=== PATIENT | male | born 1945 | race Caucasian/White ===

== ENCOUNTER → 2018-07-05 | Outpatient (CLI) | payer MEDICARE, MEDICAID ==
[~2018-07-05] MED LIST: AMLO5TAB4 PO; ATOR20TA37 PO; AZEL6DRO2 EACHEYE; CLON0.1T22 PO; CLON0.2T PO; FERR325T18 PO; HYDR25TA6 PO; LISI-170 PO; LOSA100T14 PO; METF500T17 PO; METO50TA82 PO; POTA10TA PO; insulin
== END | disposition home or self-care (01) ==
LOC: CVU 15:50
PROVIDERS: ATTEND Internal Medicine Cardiovascular Disease
DX: I35.8 Other nonrheumatic aortic valve disorders (principal); I11.9 Hypertensive heart disease without heart failure; E78.5 Hyperlipidemia, unspecified; Z86.73 Personal history of transient ischemic attack (TIA), and cerebral infarction without residual deficits
CPT/HCPCS: 93306

== ENCOUNTER 2020-04-26 12:22 | Inpatient (IN) | payer MEDICARE, MEDICAID ==
[~2020-04-26] VITALS: Ht 172.7 cm; Wt 77.1 kg
--- NOTE | 2020-04-26 12:59 | NUR ---
PT PRESENTS TO ED WITH SOB X8 DAYS. SOME COUGHING. DENIES ANY OTHER SYMPTOMS. NO WOB NOTED, NC IN PLACE. PT RECLINED TO DEGREES IN BED AND REPORTS COMFORT IN THIS POSITION.
--- NOTE | 2020-04-26 13:11 | NUR ---
PONCE MUÑIZ AT BEDSIDE TO PLACE PIV.
[2020-04-26] MEDS ORDERED: SODIUM CHLORIDE FLUSH 10ML SYR IVF ONE (14:00)
--- NOTE | 2020-04-26 14:01 | NUR ---
PT RESTING COMFORTABLY. VSS. FAMILY AT BEDSIDE.
[2020-04-26 14:03] LABS: BASOPHILS % (AUTO) 0 % (0-1); EOSINOPHILS % (AUTO) 0 % (1-7); LYMPHOCYTES % (AUTO) 20 % (22-44); MEAN CORPUSCULAR HEMOGLOBIN 31.4 pg (27.5-34.5); MEAN CORPUSCULAR HGB CONC 34.4 g/dL (33.2-36.2); MEAN PLATELET VOLUME 9.5 fL (7.4-10.4); MONOCYTES % (AUTO) 11 % (2-9); NEUTROPHILS % (AUTO) 68 % (42-75); PLATELET COUNT 179 x10^3/uL (130-400); RED BLOOD COUNT 5.21 x10^6/uL (4.38-5.82); RED CELL DISTRIBUTION WIDTH 14.9 % (9.4-14.8)
[2020-04-26 14:08] LABS: MD NO
[2020-04-26 14:13] LABS: ALBUMIN 3.2 g/dL (3.4-5.0); ANION GAP 8 mmol/L (5-15); CALCIUM 8.6 mg/dL (8.5-10.1); CHLORIDE 103 mmol/L (98-107)
[2020-04-26 14:17] LABS: ALANINE AMINOTRANSFERASE 34 U/L (12-78); ALKALINE PHOSPHATASE 56 U/L (45-117); BILIRUBIN,TOTAL 0.8 mg/dL (0.2-1.0); TOTAL PROTEIN 8.5 g/dL (6.4-8.2)
[2020-04-26] MEDS ORDERED: HYDROcodone/APAP 5/325 TABLET PO PRN (15:00)
[2020-04-26] MEDS ORDERED: CEFTRIAXONE PMX 1GM/50ML 50 ML IV SCH (15:00)
[2020-04-26] MEDS ORDERED: ACETAMINOPHEN 325 MG TABLET PO PRN (15:00)
[2020-04-26] MEDS ORDERED: POTASSIUM CHLORIDE 20 MEQ TAB.ER.PRT PO ONE (15:00)
[2020-04-26] MEDS ORDERED: AZITHROMYCIN 500 MG in SODIUM CHLORIDE 0.9% 250 ML IV ONE (15:00)
[2020-04-26] MEDS ORDERED: CEFTRIAXONE PMX 1GM/50ML 50 ML IVPB ONE (15:00)
[2020-04-26] MEDS ORDERED: ONDANSETRON 2MG/ML, 2ML IVPush PRN (15:00)
[2020-04-26] MEDS ORDERED: SODIUM CHLORIDE 0.9% 500 ML IV SCH ×2 (15:30→21:23)
[2020-04-26] MEDS ORDERED: ENOXAPARIN 40 MG/0.4 ML ONE (15:50)
[2020-04-26] MEDS ORDERED: CEFTRIAXONE PMX 2GM/50ML 50 ML ONE (15:50)
[2020-04-26] MEDS ORDERED: POTASSIUM CHLORIDE 20 MEQ TAB.ER.PRT ONE (15:50)
[2020-04-26] MEDS: INSULIN LISPRO 100 UNITS/ML, PEN SQ-INSULIN SCH ×2 (16:00→23:22)
[2020-04-26] MEDS: ENOXAPARIN 40 MG/0.4 ML SQ SCH (16:03)
[2020-04-26] MEDS: CEFTRIAXONE PMX 2GM/50ML 50 ML IVPB SCH (16:04)
--- NOTE | 2020-04-26 16:12 | NUR ---
US AT BEDSIDE.
[2020-04-26] MEDS ORDERED: INSULIN LISPRO 100 UNITS/ML, PEN ONE (16:18)
--- NOTE | 2020-04-26 17:25 | NUR ---
FOOD TRAY PROVIDED. BG 144. UPDATED PT ON SO'S CONDITION IN ICU.
[2020-04-26 20:25] LABS: TROPONIN I < 0.015 ng/mL (0.000-0.045)
[2020-04-26 21:29] VITALS: BP 127/73
[2020-04-26] MEDS: ATORVASTATIN 40 MG TABLET PO SCH (22:30)
[2020-04-26] MEDS: METOPROLOL TARTRATE 25 MG TAB PO SCH (22:30)
[2020-04-26] MEDS: FAMOTIDINE 20 MG TABLET PO SCH (22:30)
[2020-04-27 02:03] VITALS: BP 126/77
[2020-04-27 02:27] LABS: BASOPHILS % (AUTO) 0 % (0-1); EOSINOPHILS % (AUTO) 0 % (1-7); LYMPHOCYTES % (AUTO) 28 % (22-44); MEAN CORPUSCULAR HEMOGLOBIN 31.3 pg (27.5-34.5); MEAN CORPUSCULAR HGB CONC 34.1 g/dL (33.2-36.2); MEAN PLATELET VOLUME 8.3 fL (7.4-10.4); MONOCYTES % (AUTO) 12 % (2-9); NEUTROPHILS % (AUTO) 60 % (42-75); PLATELET COUNT 170 x10^3/uL (130-400); RED BLOOD COUNT 4.87 x10^6/uL (4.38-5.82); RED CELL DISTRIBUTION WIDTH 15.1 % (9.4-14.8)
[2020-04-27 02:29] LABS: MD NO
[2020-04-27 02:34] LABS: ANION GAP 4 mmol/L (5-15); CHLORIDE 105 mmol/L (98-107); CREATININE 1.23 mg/dL (0.7-1.3)
[2020-04-27 02:47] LABS: TROPONIN I < 0.015 ng/mL (0.000-0.045)
[2020-04-27] MEDS ORDERED: POTASSIUM CHLORIDE 20 MEQ TAB.ER.PRT PO ONE (05:30)
[2020-04-27] MEDS: INSULIN LISPRO 100 UNITS/ML, PEN SQ-INSULIN SCH ×4 (07:00→22:17)
[2020-04-27] MEDS: AZITHROMYCIN 500 MG TABLET PO SCH (08:27)
[2020-04-27] MEDS: FAMOTIDINE 20 MG TABLET PO SCH ×2 (08:28→22:07)
[2020-04-27] MEDS: METOPROLOL TARTRATE 25 MG TAB PO SCH ×2 (08:28→22:07)
[2020-04-27 08:45] LABS: TROPONIN I < 0.015 ng/mL (0.000-0.045)
[2020-04-27 10:24] VITALS: BP 127/76
[2020-04-27 12:18] VITALS: BP 131/77
[2020-04-27] MEDS: ENOXAPARIN 40 MG/0.4 ML SQ SCH (15:00)
[2020-04-27] MEDS: CEFTRIAXONE PMX 2GM/50ML 50 ML IVPB SCH (15:46)
[2020-04-27] MEDS: ALBUTEROL HFA 90 MCG/SPRAY INH SCH ×2 (16:30→21:00)
[2020-04-27] MEDS ORDERED: TEMAZEPAM 15 MG CAPSULE PO PRN (16:30)
[2020-04-27] MEDS: DEXAMETHASONE 4 MG TABLET PO SCH (16:59)
[2020-04-27] MEDS: ALBUTEROL HFA 90 MCG/SPRAY INH PRN (18:39)
[2020-04-27 19:32] VITALS: BP 131/76
[2020-04-27 22:06] VITALS: BP 128/80
[2020-04-27] MEDS: ATORVASTATIN 40 MG TABLET PO SCH (22:07)
[2020-04-27] MEDS: INSULIN GLARGINE 100 UNITS/ML, PEN SQ-INSULIN SCH (22:16)
[2020-04-28 01:31] VITALS: BP 145/78
[2020-04-28 05:09] LABS: BASOPHILS % (AUTO) 0 % (0-1); EOSINOPHILS % (AUTO) 0 % (1-7); LYMPHOCYTES % (AUTO) 16 % (22-44); MEAN CORPUSCULAR HEMOGLOBIN 31.1 pg (27.5-34.5); MEAN CORPUSCULAR HGB CONC 33.8 g/dL (33.2-36.2); MEAN PLATELET VOLUME 8.5 fL (7.4-10.4); MONOCYTES % (AUTO) 6 % (2-9); NEUTROPHILS % (AUTO) 78 % (42-75); PLATELET COUNT 189 x10^3/uL (130-400); RED BLOOD COUNT 5.08 x10^6/uL (4.38-5.82); RED CELL DISTRIBUTION WIDTH 15.2 % (9.4-14.8)
[2020-04-28 05:10] LABS: MD NO
[2020-04-28 05:23] LABS: CHLORIDE 104 mmol/L (98-107)
[2020-04-28 05:30] LABS: ANION GAP 12 mmol/L (5-15); CALCIUM 8.8 mg/dL (8.5-10.1); CREATININE 1.28 mg/dL (0.7-1.3)
[2020-04-28] MEDS: ALBUTEROL HFA 90 MCG/SPRAY INH SCH ×4 (06:00→19:53)
[2020-04-28 07:25] VITALS: BP 130/80
[2020-04-28] MEDS: ASCORBIC ACID 500 MG TABLET PO SCH (07:55)
[2020-04-28] MEDS: ZINC SULFATE 220 MG CAPSULE PO SCH (07:55)
[2020-04-28] MEDS: METOPROLOL TARTRATE 25 MG TAB PO SCH ×2 (07:55→19:54)
[2020-04-28] MEDS: FAMOTIDINE 20 MG TABLET PO SCH ×2 (07:55→19:53)
[2020-04-28] MEDS: AZITHROMYCIN 500 MG TABLET PO SCH (07:55)
[2020-04-28] MEDS: CHOLECALCIFEROL 1,000 UNIT TABLET PO SCH (07:55)
[2020-04-28] MEDS: INSULIN LISPRO 100 UNITS/ML, PEN SQ-INSULIN SCH ×4 (07:56→21:14)
[2020-04-28] MEDS: DEXAMETHASONE 4 MG TABLET PO SCH (07:56)
[2020-04-28] MEDS ORDERED: DEXAMETHASONE 4 MG/ML, 1ML IVPush SCH (09:00)
[2020-04-28] MEDS ORDERED: DEXAMETHASONE 4 MG TABLET PO SCH (09:00)
[2020-04-28] MEDS ORDERED: ARTIFICIAL TEARS 15 DROP/ML BOTTLE EACHEYE PRN (09:30)
[2020-04-28] MEDS ORDERED: GUAIFENESIN/DM 200-20MG, 10ML UDC PO PRN (09:30)
[2020-04-28] MEDS ORDERED: REMDESIVIR 200 MG in SODIUM CHLORIDE 0.9% 250 ML IVPB ONE (10:00)
[2020-04-28] MEDS: DEXAMETHASONE 4 MG/ML, 1ML IVPush SCH (10:19)
[2020-04-28 12:05] VITALS: BP 126/79
[2020-04-28] MEDS: CEFTRIAXONE PMX 2GM/50ML 50 ML IVPB SCH (14:59)
[2020-04-28] MEDS: ENOXAPARIN 40 MG/0.4 ML SQ SCH (14:59)
[2020-04-28] MEDS: cloniDINE 0.1MG PATCH TD SCH (17:56)
[2020-04-28 18:37] VITALS: BP 131/80
[2020-04-28 19:44] VITALS: BP 122/76
[2020-04-28] MEDS: ATORVASTATIN 40 MG TABLET PO SCH (19:54)
[2020-04-28] MEDS: INSULIN GLARGINE 100 UNITS/ML, PEN SQ-INSULIN SCH (21:13)
[2020-04-29 00:30] VITALS: BP 143/81
[2020-04-29 05:18] LABS: BASOPHILS % (AUTO) 0 % (0-1); EOSINOPHILS % (AUTO) 0 % (1-7); LYMPHOCYTES % (AUTO) 13 % (22-44); MEAN CORPUSCULAR HEMOGLOBIN 31.6 pg (27.5-34.5); MEAN CORPUSCULAR HGB CONC 34.4 g/dL (33.2-36.2); MEAN PLATELET VOLUME 8.6 fL (7.4-10.4); MONOCYTES % (AUTO) 9 % (2-9); NEUTROPHILS % (AUTO) 78 % (42-75); PLATELET COUNT 240 x10^3/uL (130-400); RED BLOOD COUNT 5.27 x10^6/uL (4.38-5.82); RED CELL DISTRIBUTION WIDTH 15.2 % (9.4-14.8)
[2020-04-29 05:19] LABS: MD NO
[2020-04-29 05:29] LABS: ALBUMIN 2.7 g/dL (3.4-5.0); ANION GAP 11 mmol/L (5-15); CALCIUM 8.9 mg/dL (8.5-10.1); CHLORIDE 105 mmol/L (98-107)
[2020-04-29 05:38] LABS: ALANINE AMINOTRANSFERASE 45 U/L (12-78); ALKALINE PHOSPHATASE 51 U/L (45-117); BILIRUBIN,TOTAL 0.4 mg/dL (0.2-1.0); CREATININE 1.24 mg/dL (0.7-1.3); TOTAL PROTEIN 7.8 g/dL (6.4-8.2)
[2020-04-29] MEDS: ALBUTEROL HFA 90 MCG/SPRAY INH SCH ×4 (06:13→20:04)
[2020-04-29 07:34] VITALS: BP 119/73
[2020-04-29] MEDS: ZINC SULFATE 220 MG CAPSULE PO SCH (07:43)
[2020-04-29] MEDS: DEXAMETHASONE 4 MG/ML, 1ML IVPush SCH (07:43)
[2020-04-29] MEDS: CHOLECALCIFEROL 1,000 UNIT TABLET PO SCH (07:43)
[2020-04-29] MEDS: AZITHROMYCIN 500 MG TABLET PO SCH (07:44)
[2020-04-29] MEDS: ASCORBIC ACID 500 MG TABLET PO SCH (07:44)
[2020-04-29] MEDS: FAMOTIDINE 20 MG TABLET PO SCH ×2 (07:44→20:04)
[2020-04-29] MEDS: METOPROLOL TARTRATE 25 MG TAB PO SCH ×2 (07:44→20:04)
[2020-04-29] MEDS: POTASSIUM CHLORIDE 20 MEQ TAB.ER.PRT PO SCH ×2 (07:44→15:54)
[2020-04-29] MEDS: INSULIN LISPRO 100 UNITS/ML, PEN SQ-INSULIN SCH ×4 (07:45→22:21)
[2020-04-29] MEDS: REMDESIVIR 100 MG in SODIUM CHLORIDE 0.9% 250 ML IVPB SCH (09:47)
[2020-04-29 12:43] VITALS: BP 121/77
[2020-04-29] MEDS: ENOXAPARIN 40 MG/0.4 ML SQ SCH (15:54)
[2020-04-29] MEDS: MECLIZINE CHEWABLE 25 MG TAB PO SCH ×2 (15:54→20:03)
[2020-04-29] MEDS: CEFTRIAXONE PMX 2GM/50ML 50 ML IVPB SCH (16:03)
[2020-04-29 19:18] VITALS: BP 153/82
[2020-04-29] MEDS: ATORVASTATIN 40 MG TABLET PO SCH (20:04)
[2020-04-29] MEDS: INSULIN GLARGINE 100 UNITS/ML, PEN SQ-INSULIN SCH (22:22)
[2020-04-30 01:48] VITALS: BP 131/84
[2020-04-30] MEDS: ALBUTEROL HFA 90 MCG/SPRAY INH SCH ×4 (06:00→20:22)
[2020-04-30 07:17] VITALS: BP 129/75
[2020-04-30] MEDS: MECLIZINE CHEWABLE 25 MG TAB PO SCH ×3 (07:21→20:21)
[2020-04-30] MEDS: POTASSIUM CHLORIDE 20 MEQ TAB.ER.PRT PO SCH ×2 (07:21→16:30)
[2020-04-30] MEDS: ZINC SULFATE 220 MG CAPSULE PO SCH (07:21)
[2020-04-30] MEDS: ASCORBIC ACID 500 MG TABLET PO SCH (07:21)
[2020-04-30] MEDS: METOPROLOL TARTRATE 25 MG TAB PO SCH ×2 (07:21→20:22)
[2020-04-30] MEDS: INSULIN LISPRO 100 UNITS/ML, PEN SQ-INSULIN SCH ×4 (07:21→20:21)
[2020-04-30] MEDS: AZITHROMYCIN 500 MG TABLET PO SCH (07:21)
[2020-04-30] MEDS: CHOLECALCIFEROL 1,000 UNIT TABLET PO SCH (07:21)
[2020-04-30] MEDS: FAMOTIDINE 20 MG TABLET PO SCH ×2 (07:22→20:21)
[2020-04-30] MEDS: DEXAMETHASONE 4 MG/ML, 1ML IVPush SCH (07:22)
[2020-04-30 08:42] LABS: BASOPHILS % (AUTO) 0 % (0-1); EOSINOPHILS % (AUTO) 0 % (1-7); LYMPHOCYTES % (AUTO) 10 % (22-44); MEAN CORPUSCULAR HEMOGLOBIN 31.4 pg (27.5-34.5); MEAN CORPUSCULAR HGB CONC 33.8 g/dL (33.2-36.2); MEAN PLATELET VOLUME 8.5 fL (7.4-10.4); MONOCYTES % (AUTO) 9 % (2-9); NEUTROPHILS % (AUTO) 82 % (42-75); PLATELET COUNT 257 x10^3/uL (130-400); RED BLOOD COUNT 5.19 x10^6/uL (4.38-5.82); RED CELL DISTRIBUTION WIDTH 15.3 % (9.4-14.8)
[2020-04-30 08:50] LABS: MD NO
[2020-04-30 08:52] LABS: ALBUMIN 2.6 g/dL (3.4-5.0); ANION GAP 11 mmol/L (5-15); CALCIUM 8.4 mg/dL (8.5-10.1); CHLORIDE 108 mmol/L (98-107)
[2020-04-30 08:59] LABS: ALANINE AMINOTRANSFERASE 42 U/L (12-78); ALKALINE PHOSPHATASE 53 U/L (45-117); BILIRUBIN,TOTAL 0.5 mg/dL (0.2-1.0); CREATININE 1.15 mg/dL (0.7-1.3); TOTAL PROTEIN 7.9 g/dL (6.4-8.2)
[2020-04-30] MEDS: REMDESIVIR 100 MG in SODIUM CHLORIDE 0.9% 250 ML IVPB SCH (10:56)
[2020-04-30 12:02] VITALS: BP 134/82
[2020-04-30] MEDS: ENOXAPARIN 40 MG/0.4 ML SQ SCH (16:29)
[2020-04-30] MEDS: CEFTRIAXONE PMX 2GM/50ML 50 ML IVPB SCH (16:29)
[2020-04-30] MEDS: ATORVASTATIN 40 MG TABLET PO SCH (20:21)
[2020-04-30] MEDS: INSULIN GLARGINE 100 UNITS/ML, PEN SQ-INSULIN SCH (20:23)
[2020-04-30 20:26] VITALS: BP 136/78
[2020-05-01 00:16] VITALS: BP 138/82
[2020-05-01 05:15] LABS: ALBUMIN 2.8 g/dL (3.4-5.0); ANION GAP 6 mmol/L (5-15); CALCIUM 9.2 mg/dL (8.5-10.1); CHLORIDE 114 mmol/L (98-107)
[2020-05-01] MEDS: ALBUTEROL HFA 90 MCG/SPRAY INH SCH ×4 (05:15→19:47)
[2020-05-01 05:19] LABS: ALANINE AMINOTRANSFERASE 45 U/L (12-78); ALKALINE PHOSPHATASE 52 U/L (45-117); BILIRUBIN,TOTAL 0.5 mg/dL (0.2-1.0); CREATININE 1.14 mg/dL (0.7-1.3); TOTAL PROTEIN 7.5 g/dL (6.4-8.2)
[2020-05-01] MEDS: INSULIN LISPRO 100 UNITS/ML, PEN SQ-INSULIN SCH ×4 (07:00→19:48)
[2020-05-01 07:09] VITALS: BP 143/85
[2020-05-01] MEDS: MECLIZINE CHEWABLE 25 MG TAB PO SCH ×3 (07:16→19:46)
[2020-05-01] MEDS: ASCORBIC ACID 500 MG TABLET PO SCH (07:16)
[2020-05-01] MEDS: FAMOTIDINE 20 MG TABLET PO SCH ×2 (07:17→19:47)
[2020-05-01] MEDS: POTASSIUM CHLORIDE 20 MEQ TAB.ER.PRT PO SCH ×2 (07:17→16:18)
[2020-05-01] MEDS: DEXAMETHASONE 4 MG/ML, 1ML IVPush SCH (07:17)
[2020-05-01] MEDS: AZITHROMYCIN 500 MG TABLET PO SCH (07:17)
[2020-05-01] MEDS: METOPROLOL TARTRATE 25 MG TAB PO SCH ×2 (07:17→19:46)
[2020-05-01] MEDS: ZINC SULFATE 220 MG CAPSULE PO SCH (07:17)
[2020-05-01] MEDS: CHOLECALCIFEROL 1,000 UNIT TABLET PO SCH (07:17)
[2020-05-01] MEDS: REMDESIVIR 100 MG in SODIUM CHLORIDE 0.9% 250 ML IVPB SCH (10:25)
[2020-05-01 14:15] VITALS: BP 143/87
[2020-05-01] MEDS: ENOXAPARIN 40 MG/0.4 ML SQ SCH (16:18)
[2020-05-01] MEDS: CEFTRIAXONE PMX 2GM/50ML 50 ML IVPB SCH (16:18)
[2020-05-01] MEDS: ALBUTEROL HFA 90 MCG/SPRAY INH PRN (19:47)
[2020-05-01] MEDS: ATORVASTATIN 40 MG TABLET PO SCH (19:47)
[2020-05-01] MEDS: INSULIN GLARGINE 100 UNITS/ML, PEN SQ-INSULIN SCH (19:48)
[2020-05-01 19:49] VITALS: BP 138/82
[2020-05-02 00:16] VITALS: BP 146/88
[2020-05-02] MEDS: ALBUTEROL HFA 90 MCG/SPRAY INH SCH ×4 (04:57→21:38)
[2020-05-02 06:29] LABS: BASOPHILS % (AUTO) 0 % (0-1); EOSINOPHILS % (AUTO) 0 % (1-7); LYMPHOCYTES % (AUTO) 14 % (22-44); MEAN CORPUSCULAR HEMOGLOBIN 31.1 pg (27.5-34.5); MEAN CORPUSCULAR HGB CONC 33.8 g/dL (33.2-36.2); MEAN PLATELET VOLUME 9.2 fL (7.4-10.4); MONOCYTES % (AUTO) 10 % (2-9); NEUTROPHILS % (AUTO) 75 % (42-75); PLATELET COUNT 265 x10^3/uL (130-400); RED BLOOD COUNT 5.36 x10^6/uL (4.38-5.82); RED CELL DISTRIBUTION WIDTH 15.3 % (9.4-14.8)
[2020-05-02 06:31] LABS: MD NO
[2020-05-02 06:42] LABS: ALBUMIN 2.9 g/dL (3.4-5.0); ANION GAP 3 mmol/L (5-15); CALCIUM 9.1 mg/dL (8.5-10.1); CHLORIDE 112 mmol/L (98-107)
[2020-05-02 06:50] LABS: ALANINE AMINOTRANSFERASE 64 U/L (12-78); ALKALINE PHOSPHATASE 61 U/L (45-117); BILIRUBIN,TOTAL 0.7 mg/dL (0.2-1.0); CREATININE 1.05 mg/dL (0.7-1.3); TOTAL PROTEIN 7.7 g/dL (6.4-8.2)
[2020-05-02] MEDS: INSULIN LISPRO 100 UNITS/ML, PEN SQ-INSULIN SCH ×4 (07:00→21:36)
[2020-05-02 07:13] VITALS: BP 155/98
[2020-05-02] MEDS: MECLIZINE CHEWABLE 25 MG TAB PO SCH ×3 (07:51→21:36)
[2020-05-02] MEDS: ASCORBIC ACID 500 MG TABLET PO SCH (07:51)
[2020-05-02] MEDS: DEXAMETHASONE 4 MG/ML, 1ML IVPush SCH (07:51)
[2020-05-02] MEDS: AZITHROMYCIN 500 MG TABLET PO SCH (07:51)
[2020-05-02] MEDS: FAMOTIDINE 20 MG TABLET PO SCH ×2 (07:51→21:37)
[2020-05-02] MEDS: ZINC SULFATE 220 MG CAPSULE PO SCH (07:51)
[2020-05-02] MEDS: METOPROLOL TARTRATE 25 MG TAB PO SCH ×2 (07:51→21:37)
[2020-05-02] MEDS: CHOLECALCIFEROL 1,000 UNIT TABLET PO SCH (07:51)
[2020-05-02] MEDS ORDERED: FUROSEMIDE 40 MG/4 ML IV ONE (09:00)
[2020-05-02] MEDS: REMDESIVIR 100 MG in SODIUM CHLORIDE 0.9% 250 ML IVPB SCH (09:31)
[2020-05-02 12:43] VITALS: BP 136/87
[2020-05-02] MEDS: CEFTRIAXONE PMX 2GM/50ML 50 ML IVPB SCH (14:55)
[2020-05-02] MEDS: ENOXAPARIN 40 MG/0.4 ML SQ SCH (14:55)
[2020-05-02 19:43] VITALS: BP 134/87
[2020-05-02] MEDS: INSULIN GLARGINE 100 UNITS/ML, PEN SQ-INSULIN SCH (21:36)
[2020-05-02] MEDS: ATORVASTATIN 40 MG TABLET PO SCH (21:37)
[2020-05-03 00:31] VITALS: BP 135/84
[2020-05-03 05:13] LABS: BASOPHILS % (AUTO) 0 % (0-1); EOSINOPHILS % (AUTO) 0 % (1-7); LYMPHOCYTES % (AUTO) 18 % (22-44); MEAN CORPUSCULAR HEMOGLOBIN 31.3 pg (27.5-34.5); MEAN CORPUSCULAR HGB CONC 33.9 g/dL (33.2-36.2); MEAN PLATELET VOLUME 8.9 fL (7.4-10.4); MONOCYTES % (AUTO) 12 % (2-9); NEUTROPHILS % (AUTO) 71 % (42-75); PLATELET COUNT 256 x10^3/uL (130-400); RED BLOOD COUNT 5.42 x10^6/uL (4.38-5.82); RED CELL DISTRIBUTION WIDTH 15.2 % (9.4-14.8)
[2020-05-03] MEDS: ALBUTEROL HFA 90 MCG/SPRAY INH SCH ×4 (05:22→21:18)
[2020-05-03 05:23] LABS: ANION GAP 6 mmol/L (5-15); CALCIUM 8.7 mg/dL (8.5-10.1); CHLORIDE 107 mmol/L (98-107)
[2020-05-03 05:24] LABS: CREATININE 1.02 mg/dL (0.7-1.3)
[2020-05-03 05:47] LABS: MD SCAN
[2020-05-03] MEDS: INSULIN LISPRO 100 UNITS/ML, PEN SQ-INSULIN SCH ×4 (07:00→21:17)
[2020-05-03] MEDS ORDERED: FUROSEMIDE 40 MG TABLET PO ONE (07:00)
[2020-05-03 07:37] VITALS: BP 143/93
[2020-05-03] MEDS: DEXAMETHASONE 4 MG/ML, 1ML IVPush SCH (07:47)
[2020-05-03] MEDS: ASCORBIC ACID 500 MG TABLET PO SCH (07:48)
[2020-05-03] MEDS: POTASSIUM CHLORIDE 20 MEQ TAB.ER.PRT PO SCH ×2 (07:48→15:55)
[2020-05-03] MEDS: CHOLECALCIFEROL 1,000 UNIT TABLET PO SCH (07:48)
[2020-05-03] MEDS: MECLIZINE CHEWABLE 25 MG TAB PO SCH ×3 (07:48→21:17)
[2020-05-03] MEDS: metFORMIN 500 MG TABLET PO SCH ×2 (07:48→15:55)
[2020-05-03] MEDS: AZITHROMYCIN 500 MG TABLET PO SCH (07:48)
[2020-05-03] MEDS: METOPROLOL TARTRATE 25 MG TAB PO SCH ×2 (07:48→21:18)
[2020-05-03] MEDS: FAMOTIDINE 20 MG TABLET PO SCH ×2 (07:49→21:18)
[2020-05-03] MEDS: ZINC SULFATE 220 MG CAPSULE PO SCH (07:49)
[2020-05-03 09:37] VITALS: BP 122/77
[2020-05-03 13:56] VITALS: BP 122/78
[2020-05-03] MEDS: CEFTRIAXONE PMX 2GM/50ML 50 ML IVPB SCH (15:55)
[2020-05-03] MEDS: ENOXAPARIN 40 MG/0.4 ML SQ SCH (15:55)
[2020-05-03 19:39] VITALS: BP 146/89
[2020-05-03] MEDS: INSULIN GLARGINE 100 UNITS/ML, PEN SQ-INSULIN SCH (21:17)
[2020-05-03] MEDS: ATORVASTATIN 40 MG TABLET PO SCH (21:18)
[2020-05-04 01:40] VITALS: BP 138/87
[2020-05-04] MEDS: ALBUTEROL HFA 90 MCG/SPRAY INH SCH ×4 (06:07→22:51)
[2020-05-04 06:21] LABS: ANION GAP 7 mmol/L (5-15); CALCIUM 8.9 mg/dL (8.5-10.1); CHLORIDE 106 mmol/L (98-107); CREATININE 1.19 mg/dL (0.7-1.3)
[2020-05-04] MEDS: INSULIN LISPRO 100 UNITS/ML, PEN SQ-INSULIN SCH ×4 (07:00→22:51)
[2020-05-04 07:03] VITALS: BP 138/87
[2020-05-04] MEDS: CHOLECALCIFEROL 1,000 UNIT TABLET PO SCH (07:32)
[2020-05-04] MEDS: MECLIZINE CHEWABLE 25 MG TAB PO SCH ×3 (07:32→22:50)
[2020-05-04] MEDS: metFORMIN 500 MG TABLET PO SCH ×2 (07:32→16:21)
[2020-05-04] MEDS: FAMOTIDINE 20 MG TABLET PO SCH ×2 (07:33→22:50)
[2020-05-04] MEDS: METOPROLOL TARTRATE 25 MG TAB PO SCH ×2 (07:33→22:50)
[2020-05-04] MEDS: ASCORBIC ACID 500 MG TABLET PO SCH (07:33)
[2020-05-04] MEDS: AZITHROMYCIN 500 MG TABLET PO SCH (07:33)
[2020-05-04] MEDS: DEXAMETHASONE 4 MG/ML, 1ML IVPush SCH (07:33)
[2020-05-04] MEDS: ZINC SULFATE 220 MG CAPSULE PO SCH (07:33)
[2020-05-04] MEDS: POTASSIUM CHLORIDE 20 MEQ TAB.ER.PRT PO SCH ×2 (07:36→16:21)
[2020-05-04 13:16] VITALS: BP 129/83
[2020-05-04] MEDS: ENOXAPARIN 40 MG/0.4 ML SQ SCH (16:00)
[2020-05-04 19:38] VITALS: BP 137/83
[2020-05-04] MEDS: ATORVASTATIN 40 MG TABLET PO SCH (22:50)
[2020-05-04] MEDS: INSULIN GLARGINE 100 UNITS/ML, PEN SQ-INSULIN SCH (22:51)
[2020-05-05 01:35] VITALS: BP 137/86
[2020-05-05 04:46] LABS: ALBUMIN 2.5 g/dL (3.4-5.0); ANION GAP 6 mmol/L (5-15); CALCIUM 8.5 mg/dL (8.5-10.1); CHLORIDE 107 mmol/L (98-107)
[2020-05-05 04:50] LABS: ALANINE AMINOTRANSFERASE 90 U/L (12-78); ALKALINE PHOSPHATASE 60 U/L (45-117); BILIRUBIN,TOTAL 0.6 mg/dL (0.2-1.0); CREATININE 1.02 mg/dL (0.7-1.3); TOTAL PROTEIN 6.6 g/dL (6.4-8.2)
[2020-05-05] MEDS: ALBUTEROL HFA 90 MCG/SPRAY INH SCH ×4 (05:36→20:10)
[2020-05-05] MEDS ORDERED: INSULIN GLARGINE 100 UNITS/ML, PEN SQ-INSULIN ONE (07:00)
[2020-05-05] MEDS: INSULIN LISPRO 100 UNITS/ML, PEN SQ-INSULIN SCH ×4 (07:00→20:50)
[2020-05-05 08:03] VITALS: BP 128/80
[2020-05-05] MEDS: MECLIZINE CHEWABLE 25 MG TAB PO SCH ×3 (09:19→20:49)
[2020-05-05] MEDS: metFORMIN 500 MG TABLET PO SCH ×2 (09:19→16:11)
[2020-05-05] MEDS: FAMOTIDINE 20 MG TABLET PO SCH ×2 (09:19→20:49)
[2020-05-05] MEDS: METOPROLOL TARTRATE 25 MG TAB PO SCH ×2 (09:20→20:49)
[2020-05-05] MEDS: DEXAMETHASONE 4 MG/ML, 1ML IVPush SCH (09:20)
[2020-05-05] MEDS ORDERED: OMNIPAQUE 350 MG/ML, 100ML BOTTLE ONE (10:50)
[2020-05-05 13:07] VITALS: BP 127/83
[2020-05-05] MEDS: ENOXAPARIN 40 MG/0.4 ML SQ SCH (16:10)
[2020-05-05] MEDS: cloniDINE 0.1MG PATCH TD SCH (16:42)
[2020-05-05 20:35] VITALS: BP 149/92
[2020-05-05] MEDS: ATORVASTATIN 40 MG TABLET PO SCH (20:49)
[2020-05-05] MEDS: INSULIN GLARGINE 100 UNITS/ML, PEN SQ-INSULIN SCH (20:50)
[2020-05-06 01:48] VITALS: BP 139/86
[2020-05-06] MEDS: ALBUTEROL HFA 90 MCG/SPRAY INH PRN ×2 (04:10→07:36)
[2020-05-06 05:33] LABS: BASOPHILS % (AUTO) 0 % (0-1); EOSINOPHILS % (AUTO) 0 % (1-7); LYMPHOCYTES % (AUTO) 15 % (22-44); MEAN CORPUSCULAR HEMOGLOBIN 31.2 pg (27.5-34.5); MEAN CORPUSCULAR HGB CONC 33.9 g/dL (33.2-36.2); MEAN PLATELET VOLUME 10.3 fL (7.4-10.4); MONOCYTES % (AUTO) 10 % (2-9); NEUTROPHILS % (AUTO) 74 % (42-75); PLATELET COUNT 220 x10^3/uL (130-400); RED BLOOD COUNT 5.07 x10^6/uL (4.38-5.82); RED CELL DISTRIBUTION WIDTH 14.7 % (9.4-14.8)
[2020-05-06 05:39] LABS: MD NO
[2020-05-06 05:46] LABS: ANION GAP 8 mmol/L (5-15); CALCIUM 8.6 mg/dL (8.5-10.1); CHLORIDE 107 mmol/L (98-107)
[2020-05-06 05:49] LABS: CREATININE 0.92 mg/dL (0.7-1.3)
[2020-05-06 07:18] VITALS: BP 156/90
[2020-05-06] MEDS: INSULIN LISPRO 100 UNITS/ML, PEN SQ-INSULIN SCH ×4 (07:37→21:09)
[2020-05-06] MEDS: FAMOTIDINE 20 MG TABLET PO SCH ×2 (07:38→21:08)
[2020-05-06] MEDS: DEXAMETHASONE 4 MG/ML, 1ML IVPush SCH (07:38)
[2020-05-06] MEDS: METOPROLOL TARTRATE 25 MG TAB PO SCH ×2 (07:38→21:08)
[2020-05-06] MEDS: MECLIZINE CHEWABLE 25 MG TAB PO SCH ×3 (07:38→21:08)
[2020-05-06] MEDS: metFORMIN 500 MG TABLET PO SCH ×2 (07:38→16:13)
[2020-05-06] MEDS: ALBUTEROL HFA 90 MCG/SPRAY INH SCH ×4 (07:41→20:00)
[2020-05-06 13:09] VITALS: BP 135/81
[2020-05-06] MEDS: ENOXAPARIN 40 MG/0.4 ML SQ SCH (16:14)
[2020-05-06 19:49] VITALS: BP 144/84
[2020-05-06] MEDS: ATORVASTATIN 40 MG TABLET PO SCH (21:08)
[2020-05-06] MEDS: INSULIN GLARGINE 100 UNITS/ML, PEN SQ-INSULIN SCH (21:09)
[2020-05-07 02:05] VITALS: BP 150/89
[2020-05-07 05:34] LABS: BASOPHILS % (AUTO) 0 % (0-1); EOSINOPHILS % (AUTO) 1 % (1-7); LYMPHOCYTES % (AUTO) 17 % (22-44); MEAN CORPUSCULAR HEMOGLOBIN 31.2 pg (27.5-34.5); MEAN CORPUSCULAR HGB CONC 33.5 g/dL (33.2-36.2); MEAN PLATELET VOLUME 9.8 fL (7.4-10.4); MONOCYTES % (AUTO) 12 % (2-9); NEUTROPHILS % (AUTO) 71 % (42-75); PLATELET COUNT 218 x10^3/uL (130-400); RED CELL DISTRIBUTION WIDTH 14.7 % (9.4-14.8)
[2020-05-07 05:35] LABS: MD NO
[2020-05-07 05:40] LABS: ALBUMIN 2.4 g/dL (3.4-5.0); ANION GAP 7 mmol/L (5-15); CALCIUM 9.1 mg/dL (8.5-10.1); CHLORIDE 107 mmol/L (98-107)
[2020-05-07 05:50] LABS: ALANINE AMINOTRANSFERASE 70 U/L (12-78); ALKALINE PHOSPHATASE 85 U/L (45-117); BILIRUBIN,TOTAL 0.8 mg/dL (0.2-1.0); CREATININE 0.93 mg/dL (0.7-1.3); TOTAL PROTEIN 6.6 g/dL (6.4-8.2)
[2020-05-07] MEDS: ALBUTEROL HFA 90 MCG/SPRAY INH SCH ×2 (06:13→11:00)
[2020-05-07 07:21] VITALS: BP 137/89
[2020-05-07] MEDS: METOPROLOL TARTRATE 25 MG TAB PO SCH ×2 (07:37→20:48)
[2020-05-07] MEDS: DEXAMETHASONE 4 MG/ML, 1ML IVPush SCH (07:37)
[2020-05-07] MEDS: MECLIZINE CHEWABLE 25 MG TAB PO SCH ×3 (07:37→20:47)
[2020-05-07] MEDS: FAMOTIDINE 20 MG TABLET PO SCH ×2 (07:37→20:48)
[2020-05-07] MEDS: metFORMIN 500 MG TABLET PO SCH ×2 (07:37→15:57)
[2020-05-07] MEDS: INSULIN LISPRO 100 UNITS/ML, PEN SQ-INSULIN SCH ×4 (07:38→20:49)
[2020-05-07 12:31] VITALS: BP 130/83
[2020-05-07] MEDS: ENOXAPARIN 40 MG/0.4 ML SQ SCH (15:58)
[2020-05-07] MEDS: INSULIN GLARGINE 100 UNITS/ML, PEN SQ-INSULIN SCH (20:48)
[2020-05-07] MEDS: ATORVASTATIN 40 MG TABLET PO SCH (20:48)
[2020-05-07 20:55] VITALS: BP 171/95
[2020-05-07 21:43] VITALS: BP 149/64
[2020-05-08 00:23] VITALS: BP 142/84
[2020-05-08] MEDS: INSULIN LISPRO 100 UNITS/ML, PEN SQ-INSULIN SCH ×4 (07:00→20:13)
[2020-05-08] MEDS: FAMOTIDINE 20 MG TABLET PO SCH ×2 (07:51→20:08)
[2020-05-08] MEDS: metFORMIN 500 MG TABLET PO SCH ×2 (07:52→16:27)
[2020-05-08] MEDS: MECLIZINE CHEWABLE 25 MG TAB PO SCH ×3 (07:52→20:08)
[2020-05-08] MEDS: METOPROLOL TARTRATE 25 MG TAB PO SCH ×2 (07:52→20:08)
[2020-05-08 07:53] VITALS: BP 143/88
[2020-05-08 12:39] VITALS: BP 132/82
[2020-05-08] MEDS: ENOXAPARIN 40 MG/0.4 ML SQ SCH (16:26)
[2020-05-08] MEDS: ATORVASTATIN 40 MG TABLET PO SCH (20:08)
[2020-05-08] MEDS: INSULIN GLARGINE 100 UNITS/ML, PEN SQ-INSULIN SCH (20:13)
[2020-05-08 20:29] VITALS: BP 136/82
[2020-05-09 00:08] VITALS: BP 133/81
[2020-05-09 06:41] VITALS: BP 146/91
[2020-05-09] MEDS: INSULIN LISPRO 100 UNITS/ML, PEN SQ-INSULIN SCH ×4 (07:00→20:01)
[2020-05-09] MEDS: metFORMIN 500 MG TABLET PO SCH ×2 (07:48→16:25)
[2020-05-09] MEDS: MECLIZINE CHEWABLE 25 MG TAB PO SCH ×3 (07:48→20:01)
[2020-05-09] MEDS: FAMOTIDINE 20 MG TABLET PO SCH ×2 (07:48→20:01)
[2020-05-09] MEDS: METOPROLOL TARTRATE 25 MG TAB PO SCH ×2 (07:48→20:01)
[2020-05-09 11:59] VITALS: BP 138/84
[2020-05-09] MEDS: ENOXAPARIN 40 MG/0.4 ML SQ SCH (16:24)
[2020-05-09 19:24] VITALS: BP_SYST 134; BP_SYST 146; BP_DIAS 80; BP_DIAS 86
[2020-05-09] MEDS: ATORVASTATIN 40 MG TABLET PO SCH (20:01)
[2020-05-09] MEDS: INSULIN GLARGINE 100 UNITS/ML, PEN SQ-INSULIN SCH (20:02)
[2020-05-10 01:20] VITALS: BP 132/85
[2020-05-10] MEDS: INSULIN LISPRO 100 UNITS/ML, PEN SQ-INSULIN SCH ×4 (07:00→20:06)
[2020-05-10] MEDS: MECLIZINE CHEWABLE 25 MG TAB PO SCH ×3 (08:16→20:13)
[2020-05-10] MEDS: FAMOTIDINE 20 MG TABLET PO SCH ×2 (08:16→20:13)
[2020-05-10] MEDS: metFORMIN 500 MG TABLET PO SCH ×2 (08:16→16:33)
[2020-05-10] MEDS: METOPROLOL TARTRATE 25 MG TAB PO SCH ×2 (08:16→20:13)
[2020-05-10 09:18] VITALS: BP 134/88
[2020-05-10 13:44] VITALS: BP 129/78
[2020-05-10] MEDS: ENOXAPARIN 40 MG/0.4 ML SQ SCH (16:33)
[2020-05-10 19:21] VITALS: BP 152/88
[2020-05-10] MEDS: INSULIN GLARGINE 100 UNITS/ML, PEN SQ-INSULIN SCH (20:08)
[2020-05-10] MEDS: ATORVASTATIN 40 MG TABLET PO SCH (20:13)
[2020-05-11 05:39] LABS: CREATININE 0.84 mg/dL (0.7-1.3)
[2020-05-11 05:41] VITALS: BP 112/72
[2020-05-11 06:53] VITALS: BP 131/81
[2020-05-11] MEDS: INSULIN LISPRO 100 UNITS/ML, PEN SQ-INSULIN SCH ×2 (07:00→11:40)
[2020-05-11] MEDS: MECLIZINE CHEWABLE 25 MG TAB PO SCH (09:13)
[2020-05-11] MEDS: metFORMIN 500 MG TABLET PO SCH (09:13)
[2020-05-11] MEDS: METOPROLOL TARTRATE 25 MG TAB PO SCH (09:13)
[2020-05-11] MEDS: FAMOTIDINE 20 MG TABLET PO SCH (09:13)
[2020-05-11] MEDS ORDERED: ZINC220C7 PO (12:02)
[2020-05-11] MEDS ORDERED: CHOL10003 PO (12:02)
[2020-05-11] MEDS ORDERED: ASCO500T9 PO (12:02)
[2020-05-11 12:43] VITALS: BP 124/80
== END 2020-05-11 16:07 | disposition home health service (06) | DRG 177 ==
LOC: ED 14:33 → EDIP 14:34 → ED 15:30 → 3N 20:45
PROVIDERS: ADMIT Internal Medicine; ATTEND Family Medicine
PROC: 5A0935A Assistance with Respiratory Ventilation, Less than 24 Consecutive Hours, High Flow/Velocity Cannula (ICD-10-PCS; 2020-04-29)
PROC: 5A0935A Assistance with Respiratory Ventilation, Less than 24 Consecutive Hours, High Flow/Velocity Cannula (ICD-10-PCS; 2020-04-30)
PROC: XW033E5 Introduction of Remdesivir Anti-infective into Peripheral Vein, Percutaneous Approach, New Technology Group 5 (ICD-10-PCS; principal; 2020-05-01)
PROC: 5A0935A Assistance with Respiratory Ventilation, Less than 24 Consecutive Hours, High Flow/Velocity Cannula (ICD-10-PCS; 2020-05-01)
PROC: 5A0935A Assistance with Respiratory Ventilation, Less than 24 Consecutive Hours, High Flow/Velocity Cannula (ICD-10-PCS; 2020-05-02)
PROC: 5A0935A Assistance with Respiratory Ventilation, Less than 24 Consecutive Hours, High Flow/Velocity Cannula (ICD-10-PCS; 2020-05-03)
PROC: 5A0935A Assistance with Respiratory Ventilation, Less than 24 Consecutive Hours, High Flow/Velocity Cannula (ICD-10-PCS; 2020-05-04)
PROC: 5A0935A Assistance with Respiratory Ventilation, Less than 24 Consecutive Hours, High Flow/Velocity Cannula (ICD-10-PCS; 2020-05-05)
PROC: 5A0935A Assistance with Respiratory Ventilation, Less than 24 Consecutive Hours, High Flow/Velocity Cannula (ICD-10-PCS; 2020-05-06)
PROC: 5A0945A Assistance with Respiratory Ventilation, 24-96 Consecutive Hours, High Flow/Velocity Cannula (ICD-10-PCS; 2020-05-06)
DX: U07.1 COVID-19 (principal); J12.82 Pneumonia due to coronavirus disease 2019; J96.01 Acute respiratory failure with hypoxia; N17.9 Acute kidney failure, unspecified; E78.2 Mixed hyperlipidemia; Z68.25 Body mass index [BMI] 25.0-25.9, adult; E66.9 Obesity, unspecified; E11.65 Type 2 diabetes mellitus with hyperglycemia; E87.6 Hypokalemia; I10 Essential (primary) hypertension; Z79.84 Long term (current) use of oral hypoglycemic drugs
CPT/HCPCS: 36415; 71045; 71275; 76770; 80048; 80053; 82565; 82947; 82962; 83036; 83605; 83615; 83735; 84484; 85025; 85379; 86140; 87040; 93005; 93306; 93356; 93970; 94640; 96374; 99285; G0378; J0456; J0696; J1100; J1650; J1940; J2405; Q9967; J1815; J7040; J7050; U0003